=== PATIENT | male | born 1975 | race Caucasian/White ===

== ENCOUNTER 2021-03-06 11:54 | Emergency (ER) | payer BC ==
--- NOTE | 2021-03-06 12:12 | EDM.PDOC ---
ED HPI GENERAL MEDICAL PROBLEM - General Chief Complaint: Neuro Symptoms/Deficits Stated Complaint: EMS Time Seen by Provider: 03/06/21 11:57 Source of Information: Reports: Patient History Limitations: Reports: No Limitations - History of Present Illness INITIAL COMMENTS - FREE TEXT/NARRATIVE: Patient is a 46-year-old male who presents today for syncope episode. Patient was at work where he [employer] is up some boxes states he felt lightheaded and lost his footing. Patient did not fall and hit his head. Patient was not often if the amount of time. Patient denies any chest pain 2 episodes of before the past. Currently patient feels back at his baseline. - Related Data Allergies Allergy/AdvReac Type Severity Reaction Status Date / Time No Known Allergies Allergy Verified 03/06/21 12:04 Home Meds: Home Meds . [No Known Home Meds] 03/06/21 [History] ED ROS GENERAL - Review of Systems Review Of Systems: See Below Constitutional: Reports: No Symptoms HEENT: Reports: No Symptoms Respiratory: Reports: No Symptoms Cardiovascular: Reports: Syncope Endocrine: Reports: No Symptoms GI/Abdominal: Reports: No Symptoms : Reports: No Symptoms Musculoskeletal: Reports: No Symptoms Skin: Reports: No Symptoms Neurological: Reports: No Symptoms Psychiatric: Reports: No Symptoms Hematologic/Lymphatic: Reports: No Symptoms Immunologic: Reports: No Symptoms - Physical Exam Exam: See Below Exam Limited By: No Limitations General Appearance: Alert, WD/WN, No Apparent Distress Eye Exam: Bilateral Eye: EOMI, PERRL Head Exam: Atraumatic, Normocephalic Respiratory/Chest: No Respiratory Distress, Lungs Clear, Normal Breath Sounds Cardiovascular: Normal Peripheral Pulses, Regular Rate, Rhythm GI/Abdominal: Normal Bowel Sounds, Soft, Non-Tender Neuro Exam (Abbreviated): Alert, Oriented, CN II-XII Intact, Normal Cognition, Normal Gait #1 Interpretation EKG Date: 03/06/21 Time: 12:11 Rhythm: NSR Rate (Beats/Min): 73 ST-T: Normal Course - Vital Signs Last Recorded V/S: Last Vital Signs Temp 98.4 F 03/06/21 12:04 Pulse 58 L 03/06/21 14:15 Resp 18 03/06/21 14:15 BP 128/79 03/06/21 14:15 Pulse Ox 97 03/06/21 14:15 - Orders/Labs/Meds Orders: Active Orders 24 hr Category Date Time Status EKG Documentation Completion [RC] STAT Care 03/06/21 12:03 Active Labs: Laboratory Tests 03/06/21 03/06/21 03/06/21 Range/Units 12:01 12:01 14:05 WBC 6.96 (4.0-11.0) K/uL RBC 4.70 (4.50-5.90) M/uL Hgb 15.1 (13.0-17.0) g/dL Hct 42.5 (38.0-50.0) % MCV 90.4 (80.0-98.0) fL MCH 32.1 H (27.0-32.0) pg MCHC 35.5 (31.0-37.0) g/dL RDW Std Deviation 44.0 (28.0-62.0) fl RDW Coeff of Liliana 13 (11.0-15.0) % Plt Count 173 (150-400) K/uL MPV 11.10 (7.40-12.00) fL Neut % (Auto) 81.7 H (48.0-80.0) % Lymph % (Auto) 13.2 L (16.0-40.0) % [place] % (Auto) 4.7 (0.0-15.0) % Eos % (Auto) 0.3 (0.0-7.0) % Baso % (Auto) 0.1 (0.0-1.5) % Neut # (Auto) 5.7 (1.4-5.7) K/uL Lymph # (Auto) 0.9 (0.6-2.4) K/uL [place] # (Auto) 0.3 (0.0-0.8) K/uL Eos # (Auto) 0.0 (0.0-0.7) K/uL Baso # (Auto) 0.0 (0.0-0.1) K/uL Nucleated RBC % 0.0 /100WBC Nucleated RBCs # 0 K/uL Sodium 141 (136-148) mmol/L Potassium 3.7 (3.5-5.1) mmol/L Chloride 104 (98-107) mmol/L Carbon Dioxide 24.0 (21.0-32.0) mmol/L BUN 17 (7.0-18.0) mg/dL Creatinine 1.0 (0.8-1.3) mg/dL Est Cr Clr Drug Dosing 89.30 mL/min Estimated GFR (MDRD) > 60.0 ml/min Glucose 105 (74-106) mg/dL Calcium 9.0 (8.5-10.1) mg/dL Total Bilirubin 0.8 (0.2-1.0) mg/dL AST 20 (15-37) IU/L ALT 30 (14-63) IU/L Alkaline Phosphatase 73 (46-116) U/L Creatine Kinase 215 (26-308) U/L Troponin I < 0.050 (0.000-0.056) ng/mL Total Protein 7.5 (6.4-8.2) g/dL Albumin 4.4 (3.4-5.0) g/dL Globulin 3.1 (2.6-4.0) g/dL Albumin/Globulin Ratio 1.4 (0.9-1.6) Urine Opiates Screen NEGATIVE (NEGATIVE) Ur Oxycodone Screen NEGATIVE (NEGATIVE) Urine Methadone Screen NEGATIVE (NEGATIVE) Ur Barbiturates Screen NEGATIVE (NEGATIVE) Ur Phencyclidine Scrn NEGATIVE (NEGATIVE) Ur Amphetamine Screen NEGATIVE (NEGATIVE) U Methamphetamines Scrn NEGATIVE (NEGATIVE) U Benzodiazepines Scrn NEGATIVE (NEGATIVE) U Cocaine Metab Screen NEGATIVE (NEGATIVE) U Marijuana (THC) Screen NEGATIVE (NEGATIVE) Ethyl Alcohol < 3.0 mg/dL - Re-Assessments/Exams Free Text/Narrative Re-Assessment/Exam: 03/06/21 14:36 Patient was seen today for syncope episode at work. Patient EKG review labs troponin reviewed. Patient at baseline has no neurological deficits patient will be discharged home can follow-up with cardiology as outpatient. Departure - Departure Time of Disposition: 14:37 Disposition: Home, Self-Care 01 Condition: Good Clinical Impression: Syncope - Discharge Information *PRESCRIPTION DRUG MONITORING PROGRAM REVIEWED*: Not Applicable *COPY OF PRESCRIPTION DRUG MONITORING REPORT IN PATIENT RUKHSANA: Not Applicable Instructions: Syncope Referrals: PCP,None [Primary Care Provider] - Forms: ED Department Discharge Additional Instructions: The following information is given to patients seen in the emergency department who are being discharged to home. This information is to outline your options for follow-up care. We provide all patients seen in our emergency department with a follow-up referral. The need for follow-up, as well as the timing and circumstances, are variable depending upon the specifics of your emergency department visit. If you don't have a primary care physician on staff, we will provide you with a referral. We always advise you to contact your personal physician following an emergency department visit to inform them of the circumstance of the visit and for follow-up with them and/or the need for any referrals to a consulting specialist. The emergency department will also refer you to a specialist when appropriate. This referral assures that you have the opportunity for follow-up care with a specialist. All of these measure are taken in an effort to provide you with optimal care, which includes your follow-up. Under all circumstances we always encourage you to contact your private physician who remains a resource for coordinating your care. When calling for follow-up care, please make the office aware that this follow-up is from your recent emergency room visit. If for any reason you are refused follow-up, please contact the [facility] Emergency Department at and asked to speak to the emergency department charge nurse. Please follow up with your primary care physician. If you do not have a primary care physician, see below: [place] [address] You are seen today after you passed out at work. We did EKG labs and x-rays that were within normal limits. Above is number for cardiology can you to follow-up with. You develop any other concerning signs or symptoms please return to the ED immediately. Sepsis Event Note (ED) - Focused Exam Vital Signs: Vital Signs Temp Pulse Resp BP Pulse Ox 03/06/21 14:15 58 L 18 128/79 97 03/06/21 13:15 65 18 140/80 94 L 03/06/21 12:04 98.4 F 76 16 134/102 H 98 - My Orders Last 24 Hours: My Active Orders 03/06/21 12:03 EKG Documentation Completion [RC] STAT - Assessment/Plan Last 24 Hours: My Active Orders 03/06/21 12:03 EKG Documentation Completion [RC] STAT Plan: Patient is a 46-year-old male who presents today for syncope episode at work. Will have EKG labs and reassess.
[2021-03-06 12:38] LABS: BLOOD UREA NITROGEN,BUN 17 mg/dL (7.0-18.0); CHLORIDE,CL 104 mmol/L (98-107); GLUCOSE RANDOM 105 mg/dL (74-106); POTASSIUM,K 3.7 mmol/L (3.5-5.1); SODIUM,NA 141 mmol/L (136-148)
--- NOTE | 2021-03-06 13:01 | CR ---
INDICATION: SYNCOPE TECHNIQUE: Chest 2 views. COMPARISON: None. FINDINGS: Cardiovascular and mediastinum: Heart size and vasculature are normal in caliber and appearance. Mediastinum is within normal limits. Lungs and pleural spaces: Lungs are clear. No sign of infiltrate or mass. No sign of pleural effusion. No pneumothorax. Bones and soft tissues: No significant findings. IMPRESSION: Unremarkable chest. Dictated by: Abhinav Diggs MD @ 03/06/2021 12:58:56 (Electronically Signed)
== END 2021-03-06 14:51 | disposition home or self-care (01) ==
LOC: MW.ED 11:54
DX: R55 Syncope and collapse (principal)
CPT/HCPCS: 71046; 71046-26; 80053; 80305-QW; 80307; 82550; 84484; 85025; 93005; 93010; 99283; 99285-25

== ENCOUNTER 2021-04-25 08:14 | Emergency (ER) | payer BC ==
--- NOTE | 2021-04-25 08:22 | PCM.EKG ---
#1 Interpretation EKG Date: 04/25/21 Time: 08:14 Rhythm: NSR Rate (Beats/Min): 85 [place]: Normal P-Wave: Present QRS: Normal ST-T: Normal QT: Normal Comparison: No Change (03/06/21) EKG Interpretation Comments: Sinus Rhythm diffuse ST elevation. Benign early repol vs periarditis
[2021-04-25] MEDS ORDERED: Aspirin 81 MG Tab.Chew PO ONE (08:23)
--- NOTE | 2021-04-25 09:01 | CR ---
INDICATION: Chest pain and shortness of breath TECHNIQUE: Chest 1 views COMPARISON: March 06, 2021 FINDINGS: Cardiovascular and mediastinum: Heart size and vasculature are normal in caliber and appearance. Lungs and pleural spaces: Lungs are clear. No sign of infiltrate or mass. No sign of pleural effusion. No pneumothorax. Bones and soft tissues: No significant findings. IMPRESSION: No acute findings and no significant changes from the prior exam. Dictated by Elver Caro MD @ 04/25/2021 9:00:[address] Elver Caro @ Apr 25 2021 9:00AM
[2021-04-25 09:05] LABS: BLOOD UREA NITROGEN,BUN 12 mg/dL (7.0-18.0); CHLORIDE,CL 104 mmol/L (98-107); GLUCOSE RANDOM 126 mg/dL (74-106); POTASSIUM,K 3.6 mmol/L (3.5-5.1); SODIUM,NA 140 mmol/L (136-148)
--- NOTE | 2021-04-25 10:06 | PCM.EKG ---
#2 Interpretation EKG Date: 04/25/21 Time: 09:28 Rhythm: NSR Rate (Beats/Min): 73 [place]: Normal P-Wave: Present QRS: Normal ST-T: Normal QT: Normal Comparison: No Change (today) EKG Interpretation Comments: Sinus Rhythm on close examination, no ST elevation present.
--- NOTE | 2021-04-25 10:14 | EDM.PDOC ---
ED HPI GENERAL MEDICAL PROBLEM - General Chief Complaint: Respiratory Problem Stated Complaint: chest pain short of breathe Time Seen by Provider: 04/25/21 08:18 - History of Present Illness INITIAL COMMENTS - FREE TEXT/NARRATIVE: CHIEF COMPLAINT(S): Chest pain HISTORY OF PRESENT ILLNESS: This is a 46-year-old man with a prior history of one syncopal episode otherwise no other past medical history who comes to the emergency department with a chief complaint of chest pain. The patient states that approximately 1/2 hours prior to arrival he got up to turn the water on for the coffee pot when he started to feel lightheaded and had some shortness of breath. He states that he started to experience some squeezing/crusting chest pain located throughout his entire front of his chest. He states that he felt like he was going to fall but did not have any syncopal episode. He rates this pain a 0 out of 10 currently. He describes that before it was just uncomfortable. He denies any diaphoresis, nausea or vomiting. He states that the pain resolved after approximately 30 minutes. He currently denies any lightheadedness, shortness of breath or chest pain. He denies any recent travel, recent surgery, prior history of DVT or PE. He denies any family history of early onset CAD or sudden onset at young age. He states that he did not follow-up with cardiology last time after his syncopal episode. In addition, he states that for years when he rolls onto his right side he feels this crushing pain on the right side of his body. It resolves after rolling onto his left side. He denies any numbness, tingling, weakness, headache. REVIEW OF SYSTEMS: Constitutional: Denies fever, chills. Eyes: Denies eye pain Ears, Nose, Mouth, & Throat: Denies earache Cardiovascular: Positive for chest pain and possible presyncope respiratory: Positive for shortness of breath Gastrointestinal: Denies Nausea, vomiting, diarrhea, hematochezia. Genitourinary: Denies hematuria Skin:Denies a rash MSK: Denies joint pain Neurological: Denies blurred vision, numbness, tingling, weakness Psychiatric: Denies depression PAST MEDICAL HISTORY: As per history of present illness and as reviewed below otherwise noncontributory. SURGICAL HISTORY: As per history of present illness and as reviewed below otherwise noncontributory. SOCIAL HISTORY: As per history of present illness and as reviewed below otherwise noncontributory. FAMILY HISTORY: As per history of present illness and as reviewed below otherwise noncontributory. EXAMINATION OF ORGAN SYSTEMS/BODY AREAS: Constitutional: Blood pressure is 109/80, heart rate 82, respiratory rate 20 with an oxygen saturation of 99% on room air. Temperature 36.6 General: Overall well-appearing man who is in no acute distress Psychiatric: Appropriate mood and affect. Eyes: No scleral icterus or conjunctival erythema ENMT: Moist mucous membranes. No pharyngeal erythema Cardiovascular: Regular, rate, and rhythm. No gallops, murmurs, or rubs. Bilateral upper extremity pulses symmetric and intact. No peripheral edema. No JVD. Respiratory: Lungs clear to auscultation bilaterally. No wheezes, rales, or rhonchi. Patient is speaking in full sentences. Gastrointestinal: Soft, non-tender, non-distended. Normoactive bowel sounds Genitourinary: No suprapubic tenderness Musculoskeletal: Normal range of motion. Skin: No lesions or abrasions. Neurological: Alert, GCS 15 MEDICAL DECISION MAKING AND COURSE IN THE ED WITH INTERPRETATION/REVIEW OF DIAGNOSTIC STUDIES: This is a 46-year-old man and with 1 prior episode of syncope in February while at work who comes to the emergency department with crushing chest pain with explained symptoms of possible presyncope who has normal vital signs and appears well. We did obtain an EKG which did breed some ST elevation throughout concerning for pericarditis however on closer examination it does not appear to have any ST elevation. This appears to be similar to prior. Will obtain a cardiac work-up including CBC, CMP, troponin and a chest x-ray. We will provide the patient with aspirin for pain and ACS rule out. PERC Rule Age (>/=50): No (0) HR (>/=100): No (0) SaO2 on RA <95%: No (0) Unilateral Leg Swelling: No (0) Hemoptysis: No (0) Surgery/Trauma in last month requiring general anesthesia: No (0) Prior PE or DVT: : No (0) Hormone Use: No (0) PERC negative Since patient is PERC negative and pre-test probability <15%, there is no need for more intensive workup, <2% chance of PE Heart Score History: Moderately Suspicious (1) ECG: Non-specific repolarization (1) Age: 45-64 (1) Risk Factors: No known risk factors (0) Initial Troponin: </= normal limit (0) Total Score: 3 (Low risk) Laboratory: CBC is unremarkable. CMP reveals metabolic acidosis with a bicarbonate of 20, hyperglycemia at 126 otherwise unremarkable. Magnesium is normal at 2.0. Troponin is negative. The radiological images were viewed by myself along with reading the report from the radiologist. Chest x-ray does not reveal any acute cardiopulmonary process On reevaluation the patient was sleeping comfortably and was no in any distress with normal vital signs. We will repeat a troponin. Did not bother the patient at this time. Prior to repeat troponin I did discuss the results with the patient. He was amenable to repeat troponin at this time and reevaluation. Laboratory: Repeat troponin is negative. Given his prior syncopal episode and his symptomatology today the patient is still low risk by heart score I did offer the patient observation admission for chest pain and syncope. I did discuss the risks and benefits. He elected for outpatient follow-up. We did place a Zio patch on the patient given the syncopal episode and he will follow up with our data specialist Dr. Malloy. He was given strict return precautions. DISPOSITION: The patient was discharged home in stable condition. The patient will follow up with cardiology CONDITION: Fair PROCEDURES: None FINAL IMPRESSION(S)/DIAGNOSES: 1. Acute chest pain 2. Acute presyncope Edu Em M.D. - Related Data Allergies Allergy/AdvReac Type Severity Reaction Status Date / Time No Known Allergies Allergy Verified 04/25/21 08:16 Home Meds: Home Meds . [No Known Home Meds] 03/06/21 [History] Past Medical History - Past Health History Medical/Surgical History: Denies Medical/Surgical History - Infectious Disease History Infectious Disease History: Reports: None Social & Family History - Caffeine Use Caffeine Use: Reports: None - Recreational Drug Use Recreational Drug Use: No ED ROS GENERAL - Review of Systems Review Of Systems: See Below ED EXAM, GENERAL - Physical Exam Exam: See Below Course - Vital Signs Last Recorded V/S: Last Vital Signs Temp 36.6 C 04/25/21 08:20 Pulse 74 04/25/21 12:04 Resp 17 04/25/21 12:04 BP 114/72 04/25/21 12:04 Pulse Ox 97 04/25/21 12:04 - Orders/Labs/Meds Labs: Laboratory Tests 04/25/21 04/25/21 04/25/21 Range/Units 08:23 08:23 10:28 WBC 5.10 (4.0-11.0) K/uL RBC 5.18 (4.50-5.90) M/uL Hgb 16.7 (13.0-17.0) g/dL Hct 46.0 (38.0-50.0) % MCV 88.8 (80.0-98.0) fL MCH 32.2 H (27.0-32.0) pg MCHC 36.3 (31.0-37.0) g/dL RDW Std Deviation 42.1 (28.0-62.0) fl RDW Coeff of Liliana 13 (11.0-15.0) % Plt Count 211 (150-400) K/uL MPV 11.10 (7.40-12.00) fL Neut % (Auto) 67.4 (48.0-80.0) % Lymph % (Auto) 23.7 (16.0-40.0) % [place] % (Auto) 6.9 (0.0-15.0) % Eos % (Auto) 1.4 (0.0-7.0) % Baso % (Auto) 0.6 (0.0-1.5) % Neut # (Auto) 3.4 (1.4-5.7) K/uL Lymph # (Auto) 1.2 (0.6-2.4) K/uL [place] # (Auto) 0.4 (0.0-0.8) K/uL Eos # (Auto) 0.1 (0.0-0.7) K/uL Baso # (Auto) 0.0 (0.0-0.1) K/uL Nucleated RBC % 0.0 /100WBC Nucleated RBCs # 0 K/uL Sodium 140 (136-148) mmol/L Potassium 3.6 (3.5-5.1) mmol/L Chloride 104 (98-107) mmol/L Carbon Dioxide 20.0 L (21.0-32.0) mmol/L BUN 12 (7.0-18.0) mg/dL Creatinine 1.1 (0.8-1.3) mg/dL Est Cr Clr Drug Dosing 81.18 mL/min Estimated GFR (MDRD) > 60.0 ml/min Glucose 126 H (74-106) mg/dL Calcium 9.7 (8.5-10.1) mg/dL Magnesium 2.0 (1.8-2.4) mg/dL Total Bilirubin 1.0 (0.2-1.0) mg/dL AST 18 (15-37) IU/L ALT 23 (14-63) IU/L Alkaline Phosphatase 77 (46-116) U/L Troponin I < 0.050 < 0.050 (0.000-0.056) ng/mL Total Protein 7.8 (6.4-8.2) g/dL Albumin 4.1 (3.4-5.0) g/dL Globulin 3.7 (2.6-4.0) g/dL Albumin/Globulin Ratio 1.1 (0.9-1.6) Meds: Medications Discontinued Medications Generic Name Dose Route Start Last Admin Trade Name Freq PRN Reason Stop Dose Admin Aspirin 324 mg 04/25/21 08:23 04/25/21 08:26 Aspirin 81 Mg Tab.Chew PO 04/25/21 08:24 324 mg ONETIME ONE Administration Departure - Departure Time of Disposition: 11:43 Disposition: Home, Self-Care 01 Condition: Fair Clinical Impression: Chest pain, Pre-syncope - Discharge Information *PRESCRIPTION DRUG MONITORING PROGRAM REVIEWED*: No *COPY OF PRESCRIPTION DRUG MONITORING REPORT IN PATIENT RUKHSANA: No Instructions: Near-Syncope, [id number], Nonspecific Chest Pain, Adult, [id number] Referrals: PCP,None [Primary Care Provider] - Alejandro Lovelace MD [Physician] - Forms: ED Department Discharge Additional Instructions: You evaluate today on an emergent basis. At this time your work-up was negative. Given that she did have a syncopal episode in February and are presenting with similar symptoms besides the chest pain I do recommend you follow-up with cardiology. We will place you on the cardiology follow-up list. In addition we did place a Zio patch this needs to be kept on for 2 weeks and be reviewed with cardiology. If you have any worsening chest pain, passing out, shortness of breath please return to the emergency department [facility] [address] [place] [address] [facility] [address] [place] [address] The patient is informed of any results of their evaluation and diagnostic workup and all questions are answered. They are given discharge instructions and return precautions. The patient is stable for discharge. The patient states they understand and agree with the plan and that they will return if their symptoms get worse or if they have any new concerns. The following information is given to patients seen in the emergency department who are being discharged to home. This information is to outline your options for follow-up care. We provide all patients seen in our emergency department with a follow-up referral. The need for follow-up, as well as the timing and circumstances, are variable depending upon the specifics of your emergency department visit. If you don't have a primary care physician on staff, we will provide you with a referral. We always advise you to contact your personal physician following an emergency department visit to inform them of the circumstance of the visit and for follow-up with them and/or the need for any referrals to a consulting specialist. The emergency department will also refer you to a specialist when appropriate. This referral assures that you have the opportunity for follow-up care with a specialist. All of these measure are taken in an effort to provide you with optimal care, which includes your follow-up. Under all circumstances we always encourage you to contact your private physician who remains a resource for coordinating your care. When calling for follow-up care, please make the office aware that this follow-up is from your recent emergency room visit. If for any reason you are refused follow-up, please contact the Emergency Department at and asked to speak to the emergency department charge nurse. Sepsis Event Note (ED) - Evaluation Sepsis Screening Result: No Definite Risk - Focused Exam Vital Signs: Vital Signs Temp Pulse Resp BP Pulse Ox 04/25/21 12:04 74 17 114/72 97 04/25/21 10:49 63 15 110/76 97 04/25/21 09:49 66 15 118/79 96 04/25/21 08:49 83 17 122/89 94 L 04/25/21 08:20 36.6 C 82 20 109/80 99
== END 2021-04-25 12:05 | disposition home or self-care (01) ==
LOC: MW.ED 08:14
DX: R07.9 Chest pain, unspecified (principal); R55 Syncope and collapse
CPT/HCPCS: 36415; 71045; 80053; 83735; 84484; 85025; 93005; 99285; A9270; 93010; 99283